=== PATIENT | female | born 1980 | race American Indian/Alaskan Native ===

== ENCOUNTER 2017-05-25 09:31 | Outpatient (CLI) | payer OTHER ==
--- NOTE | 2017-05-25 13:27 | Ultrasound Report ---
ULTRASOUND PELVIC COMPLETE ULTRASOUND TRANSVAGINAL HISTORY: Pelvic cramping, pain. TECHNIQUE: Transabdominal and transvaginal ultrasound with color doppler interrogation. The uterus is anteverted and measures 7.4 x 4.4 x 4.9 cm. No uterine mass is detected. The endometrial stripe is homogeneous and measures 9.8 mm in thickness. Normal cervix. The right ovary measures 4.2 x 2.5 x 3.2 cm. A 1.7 x 1.4 x 1.3 cm complex area is identified in the right ovary. This lesion is 50% cystic and 50% solid. No calcifications or internal blood flow. The etiology of this is unclear. This may represent a ruptured cyst or resolving hemorrhagic cyst. The left ovary is unremarkable and measures 3.4 x 1.8 x 2.5 cm. No abnormality. No pelvic fluid collection. IMPRESSION: 1.7 x 1.4 x 1.3 cm complex area in the right ovary as outlined above. This probably represents a complex cyst. Other etiology is such as an ectopic or not entirely excluded. Please correlate with the patient's clinical presentation. Consider followup ultrasound in 6 weeks at a different stage of menstrual cycle.
== END 2017-05-25 09:32 | disposition home or self-care (01) ==
LOC: US 09:31
PROVIDERS: ATTEND Family Medicine
DX: R10.2 Pelvic and perineal pain (principal); N85.4 Malposition of uterus
CPT/HCPCS: 76830; 76856

== ENCOUNTER 2018-03-22 11:31 | Outpatient (CLI) | payer OTHER ==
--- NOTE | 2018-03-22 15:57 | Ultrasound Report ---
TRANSABDOMINAL AND TRANSVAGINAL PELVIC ULTRASOUND: 03/22/18 11:31:00 CLINICAL: Dysfunctional uterine bleeding. FINDINGS: Transabdominal and transvaginal pelvic ultrasound demonstrated a normal uterus measuring 8.4 x 4.6 x 4.8 cm. Normal uterine contour and echogenicity. No uterine fibroid or mass identified.The endometrium is normal and measures 3.0 mm AP thickness. Normal ovaries with small follicles in each ovary. The right ovary measures 3.3 x 1.8 x 2.0 cm. A dominant right follicle measures 1.1cm. The left ovary measures 3.1 x 3.1 x 2.5 cm. A dominant left follicle measures 0.7cm. No adnexal mass. No free fluid. Normal urinary bladder. IMPRESSION: Normal pelvis with a normal uterus and ovaries.
== END 2018-03-22 11:32 | disposition home or self-care (01) ==
LOC: SPVWC 11:31
PROVIDERS: ATTEND Family Medicine
DX: N83.291 Other ovarian cyst, right side (principal); N92.0 Excessive and frequent menstruation with regular cycle
CPT/HCPCS: 76830; 76856